=== PATIENT | male | born 1960 | race African-American/Black ===

== ENCOUNTER 2019-02-12 00:19 | Emergency (ER) | payer SELFPAY ==
[~2019-02-12] VITALS: Ht 175.3 cm; Wt 68.0 kg
[2019-02-12 00:27] VITALS: BP 139/80
[2019-02-12 01:26] LABS: BASOPHILS # (AUTO) 0.04 x10^3/uL (0-0.1); BASOPHILS % (AUTO) 1 % (0-1); EOSINOPHILS # (AUTO) 0.04 x10^3/uL (0-0.4); EOSINOPHILS % (AUTO) 1 % (1-7); LYMPHOCYTES # (AUTO) 1.98 x10^3/uL (1-3.4); LYMPHOCYTES % (AUTO) 46 % (22-44); MD NO; MEAN CORPUSCULAR HEMOGLOBIN 31.8 pg (27.5-34.5); MEAN CORPUSCULAR HGB CONC 33.5 g/dL (33.2-36.2); MEAN PLATELET VOLUME 8.6 fL (7.4-10.4); MONOCYTES # (AUTO) 0.49 x10^3/uL (0.2-0.8); MONOCYTES % (AUTO) 11 % (2-9); NEUTROPHILS # (AUTO) 1.76 x10^3/uL (1.8-6.8); NEUTROPHILS % (AUTO) 41 % (42-75); PLATELET COUNT 248 x10^3/uL (130-400); RED BLOOD COUNT 3.74 x10^6/uL (4.38-5.82)
--- NOTE | 2019-02-12 01:35 | NUR ---
PER ER MD MORFIN, DO NOT NEED TO COLLECT URINE SAMPLE.
[2019-02-12 01:38] LABS: ALANINE AMINOTRANSFERASE 21 U/L (12-78); ALBUMIN 3.6 g/dL (3.4-5.0); ANION GAP 8 mmol/L (5-15); CALCIUM 8.8 mg/dL (8.5-10.1); CHLORIDE 108 mmol/L (98-107); CREATININE 0.68 mg/dL (0.7-1.3)
[2019-02-12 01:40] LABS: ALKALINE PHOSPHATASE 91 U/L (45-117); TOTAL PROTEIN 7.3 g/dL (6.4-8.2)
--- NOTE | 2019-02-12 03:39 | NUR ---
PT YELLING AT STAFF, CALLED THE SCURITY OFFICER A 'BITCH' PT YELLING HE DOESN'T WANT TO LEAVE AND DEMANDING WATER FROM STAFF. PT ESCORTED OUT BY SECURITY. PROVIDED [facility]AX[facility] CAB VOUCHER TO [facility] 6 PER PT REQUEST
== END 2019-02-12 03:42 | disposition home or self-care (01) ==
LOC: ED 03:36
DX: F60.9 Personality disorder, unspecified (principal); F15.129 Other stimulant abuse with intoxication, unspecified; Z72.9 Problem related to lifestyle, unspecified; F17.200 Nicotine dependence, unspecified, uncomplicated
CPT/HCPCS: 36415; 80053; 80307; 85025; 99284